=== PATIENT | female | born 2000 | race Caucasian/White ===

== ENCOUNTER 2025-03-07 23:12 | Emergency (ER) | payer MEDICAID ==
[~2025-03-07] VITALS: Ht 154.9 cm; Wt 119.5 kg
[2025-03-07 23:14] VITALS: TEMP 97.7
--- NOTE | 2025-03-08 | RADIOLOGY REPORT ---
EXAM: CT CT HEAD INDICATION: HEAD PAIN TECHNIQUE: CT of the head without intravenous contrast. Radiation Dose Information: CT Dose: CTDI volume is 63.17 mGy. Dose-length product is 1138.1 mGy*cm The dose indicators for CT are the volume Computed Tomography (CT) Dose Index (CTDIvol) and the Dose Length Product (DLP), and are measured in units of mGy and mGy-cm, respectively. These indicators are not patient dose, but values generated from the CT scanner acquisition factors. The report includes radiation exposure data for exposures received during this examination. COMPARISON: None FINDINGS: There is a right frontal howie hole with a catheter seen projecting over the right frontal cortex. 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 There is mild hydrocephalus . Comparison with prior outside imaging and correlation wit h clinical history is suggested in assessing acuity and interval change, in addition to desired place ment of this catheter. The cerebellar tonsils are low lying, suboptimally evaluated due to artifact. There is no acute infarct or intracranial hemorrhage. The orbits are normal. The visualized paranasal sinuses and mastoid air cells are clear. The soft t issues and osseous structures appear within normal limits. IMPRESSION: 1. No acute intracranial hemorrhage. 2. Catheter seen projecting over the right frontal cortex. 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 There is mild hydrocephalu s. Comparison with prior outside imaging and correlation with clinical history is suggested in asses sing acuity and interval change, in addition to desired placement of this catheter. 3. If no prior imaging is available, MRI may be beneficial in further assessment.
[2025-03-08 00:08] LABS: BASOPHILS # (AUTO) 0.1 X10'3 (0-0.2); BASOPHILS % (AUTO) 0.5 % (0-1); EOSINOPHILS # (AUTO) 0.2 X10'3 (0-0.9); EOSINOPHILS % (AUTO) 1.6 % (0-6); HEMATOCRIT 35.4 % (35.0-45.0); HEMOGLOBIN 11.1 g/dl (12.0-16.0); LYMPHOCYTES # (AUTO) 2.4 X10'3 (1.1-4.8); LYMPHOCYTES % (AUTO) 20.7 % (21-51); MEAN CORPUSCULAR HEMOGLOBIN 22.1 PG (27.0-31.0); MEAN CORPUSCULAR HGB CONC 31.5 g/dL (33.0-36.5); MEAN CORPUSCULAR VOLUME 70.2 FL (78-98); MEAN PLATELET VOLUME 9.1 FL (7.4-10.4); MONOCYTES # (AUTO) 0.6 X10'3 (0-0.9); MONOCYTES % (AUTO) 5.2 % (2-12); NEUTROPHILS # (AUTO) 8.3 X10'3 (1.8-7.7); PLATELET COUNT 327 X10'3 (140-440); RED BLOOD COUNT 5.04 X10'6 (4.20-5.60); RED CELL DISTRIBUTION WIDTH 17.6 % (11.5-14.5); WHITE BLOOD COUNT 11.5 X10'3 (4.5-11.0)
[2025-03-08 00:26] LABS: ALANINE AMINOTRANSFERASE 22 U/L (12-78); ALBUMIN 3.2 G/DL (3.4-5.0); ALBUMIN/GLOBULIN RATIO 0.8 (1.1-1.5); ALKALINE PHOSPHATASE 104 IU/L (46-116); ANION GAP 9 (8-16); ASPARTATE AMINO TRANSFERASE 13 U/L (10-37); BILIRUBIN,TOTAL 0.3 MG/DL (0.1-1.0); BLOOD UREA NITROGEN 16 MG/DL (7-18); BUN/CREATININE RATIO 13.4 (10.0-20.0); CALCIUM 9.2 MG/DL (8.5-10.1); CHLORIDE 104 MMOL/L (99-107); CREATININE 1.19 MG/DL (0.40-0.90); GLUCOSE 109 MG/DL (70-104); POTASSIUM 3.8 MMOL/L (3.5-5.1); SODIUM 141 MMOL/L (135-145); TOTAL CARBON DIOXIDE 27.6 MMOL/L (24-32); TOTAL PROTEIN 7.2 G/DL (6.4-8.2); eCRCL 55 ML/MIN; eGFR 56 ML/MIN
--- NOTE | 2025-03-08 02:04 | Physician Documentation ---
History of Present Illness ~ Chief Complaint: Head Pain Stated Complaint: HEAD PAIN Time Seen by MD: 01:34 HPI 24-year-old female, history of spina bifida, has a nonfunctioning FORE[employer] AGENT shunt, presenting with headaches. She tells me that over the past week or 2 she has been having intermittent headaches. They are getting gradually worse. She states they are right-sided, and she also has some tenderness around the shunt on the right side of her head and neck. Normally if she gets headache she takes ibuprofen and Tylenol and it gets better, but this is not been working. Sometimes she is symptom-free. Yesterday she saw her primary doctor, and at that time was not having any headaches. She did get a referral to Neurology. She does not have a neurosurgeon here. She tells me that the shunt is actually nonfunctional, and has not worked for at least 10 years. She denies any fevers or other infectious symptoms. No significant dizziness, syncope, vision changes, nausea, vomiting, or other new or different symptoms. She denies any history of migraines or other headache types. Medication Reconciliation Allergies: Coded Allergies: No Known Allergies (Unverified , 03/07/25) Review of Systems Gastrointestinal: Denies: nausea, vomiting Neurological: Reports: headache; Denies: dizziness, fainting Physical Exam Vital Signs: Temperature: 97.7, Source: Oral, Heart Rate: 95, Respiratory Rate: 20, BP: 159/94, Pulse Oximetry: 99, Weight: 119.550 Physical Exam General: This is a pleasant and overall well-appearing young woman, not in distress HEENT: Atraumatic, oropharynx is moist. Mild tenderness on palpation over the right scalp around the area of the FOREIGN AGENT shunt. There was no overlying erythema, warmth, or other infectious findings. No other rashes to the scalp. Heart: Mild tachycardic, appears regular Lungs: Clear breath sounds bilateral, normal work of breathing, normal oxygen saturation on room air Abdomen: Soft, nondistended, nontender all quadrants Extremities: Warm and well-perfused Neuro: Alert and oriented, no focal deficits Psychiatric: Calm and cooperative with exam Progress Results/Orders Results/Orders Completed Orders - YANETH STANLEY MD Hcg Serum Ql (03/08/25 01:59) Normal Saline 1000ml (Sodium Chloride 10 (03/08/25 02:00) Diphenhydramine Inj (Benadryl Inj.) (03/08/25 02:00) Ketorolac Trometh 15mg/Ml Vial (Toradol (03/08/25 02:00) Ondansetron Inj. (Zofran 4mg/2ml Vial) (03/08/25 02:00) Medications Received in ER Medications (Trade) Dose Ordered Sig/Amber Route PRN Reason Start Time Stop Time Status Last Admin Dose Admin Sodium Chloride 1,000 ml @ 1,000 mls/hr ONCE ONCE IV 03/08/25 02:00 03/08/25 02:59 DC 03/08/25 02:43 1,000 MLS/HR (Benadryl inj.) 25 mg ONCE ONCE IV 03/08/25 02:00 03/08/25 02:01 DC 03/08/25 02:42 25 MG (Toradol injection) 15 mg ONCE ONCE IV 03/08/25 02:00 03/08/25 02:01 DC 03/08/25 02:43 15 MG (Zofran 4mg/2ml vial) 4 mg ONCE ONCE IV 03/08/25 02:00 03/08/25 02:01 DC 03/08/25 02:42 4 MG Vital Signs 03/07/25 03/08/25 03/08/25 03/08/25 23:14 02:10 02:30 02:43 Temp 97.7 Pulse 95 91 Resp 20 17 17 17 B/P (MAP) 159/94 137/86 (103) Pulse Ox 99 97 O2 Flow Rate 0 03/08/25 03:54 Pulse 99 Resp 15 B/P (MAP) 124/82 Pulse Ox 97 Laboratory Tests Test 03/07/25 23:50 03/08/25 00:00 White Blood Count 11.5 H Red Blood Count 5.04 Hemoglobin 11.1 L Hematocrit 35.4 Mean Corpuscular Volume 70.2 L Mean Corpuscular Hemoglobin 22.1 L Mean Corpuscular Hemoglobin Concent 31.5 L Red Cell Distribution Width 17.6 H Platelet Count 327 Mean Platelet Volume 9.1 Neutrophils (%) (Auto) 72.0 Lymphocytes (%) (Auto) 20.7 L Monocytes (%) (Auto) 5.2 Eosinophils (%) (Auto) 1.6 Basophils (%) (Auto) 0.5 Neutrophils # (Auto) 8.3 H Lymphocytes # (Auto) 2.4 Monocytes # (Auto) 0.6 Eosinophils # (Auto) 0.2 Basophils # (Auto) 0.1 CBC Comment Sodium Level 141 Potassium Level 3.8 Chloride Level 104 Carbon Dioxide Level 27.6 Anion Gap 9 Blood Urea Nitrogen 16 Creatinine 1.19 H Estimated GFR/1.73 m2 56 BUN/Creatinine Ratio 13.4 Glucose Level 109 H Calcium Level 9.2 Total Bilirubin 0.3 Aspartate Amino Transf (AST/SGOT) 13 Alanine Aminotransferase (ALT/SGPT) 22 Alkaline Phosphatase 104 Total Protein 7.2 Albumin 3.2 L Globulin 4.0 Albumin/Globulin Ratio 0.8 L Chemistry Comments Human Chorionic Gonadotropin, Qual Negative Medical Decision Making Differential Dx:Considerations: Include: MOORE-Cluster, MOORE-Migraine, MOORE-Hyp ertensive, Mass lesion, Meningitis, Temporal arteritis, Trigeminal neuralgia Additional Comment Differential includes shunt failure Assessment 24-year-old female, with a FOREIGN AGENT shunt, presenting with a headache. Her shunt is actually not in functional. On exam she has no findings of superficial infection around the shunt site. She has no fever other findings to suggest meningitis. Head CT shows no acute abnormality, was this is limited by no previous imaging for comparison. However, her shunt is already nonfunctional and so shunt failure seems unlikely to be the cause. Laboratory testing is unremarkable. She was given a migraine cocktail with significant improvement. Overall, no dangerous cause identified for her headache. I feel she is safe for discharge home with ongoing symptomatic treatment. She has a follow up appointment scheduled with Neurology. She can return here she develops worsening symptoms especially if she develops fevers or other infectious type symptoms. Departure Time of Disposition: 03:12 Disposition: 01 HOME / SELF CARE / HOMELESS Impression: Primary Impression: Headache Condition: Improved Discharge Instructions: Headache Referrals: NO PRIMARY CARE PROVIDER (PCP) Education Educated: Patient Educated regarding: diagnosis, treatment, need for follow up Signature Scribe Signature: messi Attestation: YANETH Collazo MD Mar 08, 2025 02:04
[2025-03-08] MEDS: ondansetron/PF 4mg/2ml inj IV ONE (02:42)
[2025-03-08] MEDS: diphenhydrAMINE 50 mg/ml inj IV ONE (02:42)
[2025-03-08] MEDS: normal saline 1000ml 1,000 ML IV ONE (02:43)
[2025-03-08] MEDS: ketorolac trometh 15mg/ml vial 15 MG/ML ML IV ONE (02:43)
[2025-03-08 03:06] LABS: HCG SERUM QL NEGATIVE
[2025-03-08 03:54] VITALS: BP 124/82; PULSE 99; RESP 15; O2SAT 97
== END 2025-03-08 03:57 | disposition home or self-care (01) ==
LOC: ER 23:14
DX: R51.9 Headache, unspecified (principal)
CPT/HCPCS: 36415; 70450; 80053; 84703; 85025; 96361; 96374; 96375; 99285; J1200; J1885; J2405; J7030